=== PATIENT | female | born 1990 | race African-American/Black ===

== ENCOUNTER 2023-02-05 17:55 | Emergency (ER) | payer SELFPAY ==
[2023-02-05] MEDS ORDERED: Acetaminophen 500 MG Tab PO ONE (18:30)
[2023-02-05 18:58] LABS: CHLORIDE,CL 102 mmol/L (98-107); SODIUM,NA 137 mmol/L (136-145)
[2023-02-05 19:01] LABS: ANION GAP 11.5 meq/L (7-15); ESTIMATED GFR 128 mL/min (>=60)
[2023-02-05] MEDS ORDERED: Potassium Chloride 10 MEQ Tab.ER PO ONE (19:08)
== END 2023-02-05 20:00 | disposition home or self-care (01) ==
LOC: LL.ED 17:55 → SUPCPDRO 17:55 → LL.ED 20:00
DX: O99.891 Other specified diseases and conditions complicating pregnancy (principal); R10.2 Pelvic and perineal pain; R10.32 Left lower quadrant pain; O99.282 Endocrine, nutritional and metabolic diseases complicating pregnancy, second trimester; E87.6 Hypokalemia; Z3A.28 28 weeks gestation of pregnancy
CPT/HCPCS: 36415; 80053; 85025; 93005; 99284; A9270; 93010

== ENCOUNTER 2024-06-11 15:29 | Emergency (ER) | payer BC ==
[2024-06-11 15:47] LABS: BASOPHILS ABSOLUTE AUTO 0.01 K/uL (0.00-0.20); BASOPHILS PERCENT AUTO 0.2 % (0.0-2.0); EOSINOPHILS ABSOLUTE AUTO 0.12 K/uL (0.00-0.50); EOSINOPHILS PERCENT AUTO 2.3 % (0.0-5.0); HEMATOCRIT 38.7 % (34.0-46.0); HEMOGLOBIN 13.2 g/dL (11.7-15.5); LYMPHOCYTES ABSOLUTE AUTO 2.93 K/uL (0.50-3.50); LYMPHOCYTES PERCENT AUTO 56.2 % (10.0-50.0); MEAN CORPUSCULAR HEMOGLOBIN 29.6 pg (28.2-33.3); MEAN CORPUSCULAR HGB CONC 34.1 g/dL (31.7-36.0); MEAN CORPUSCULAR VOLUME 86.8 fL (84.0-98.0); MONOCYTES ABSOLUTE AUTO 0.34 K/uL (0.00-1.00); MONOCYTES PERCENT AUTO 6.5 % (2.0-14.0); NEUTROPHILS ABSOLUTE AUTO 1.81 K/uL (1.40-7.00); NEUTROPHILS PERCENT AUTO 34.8 % (45.0-80.0); PLATELET COUNT,PLT 265 K/uL (150-350); RED BLOOD CELL COUNT 4.46 M/uL (3.77-5.09); RED CELL DISTRIBUTION WIDTH 12.9 % (11.2-14.1); WHITE BLOOD CELL COUNT,WBC 5.2 K/uL (4.0-10.2)
[2024-06-11 16:08] LABS: ANION GAP 5.3 meq/L (7-15); BLOOD UREA NITROGEN,BUN 6 mg/dL (7-18); CALCIUM 8.6 mg/dL (8.5-10.1); CARBON DIOXIDE,CO2 29.7 mmol/L (21.0-32.0); CHLORIDE,CL 105 mmol/L (98-107); CREATININE 0.61 mg/dL (0.51-1.17); ESTIMATED GFR 119 mL/min (>=60); GLUCOSE RANDOM 108 mg/dL (70-99); HCG QUANTITATIVE 0 mIU/mL; POTASSIUM,K 3.7 mmol/L (3.5-5.1); SODIUM,NA 140 mmol/L (136-145)
== END 2024-06-11 16:32 | disposition home or self-care (01) ==
LOC: LL.ED 15:29
DX: O20.9 Hemorrhage in early pregnancy, unspecified (principal); Z3A.00 Weeks of gestation of pregnancy not specified
CPT/HCPCS: 36415; 80048; 84702; 85025; 99283; 99284